=== PATIENT | female | born 1975 | race Caucasian/White ===

== ENCOUNTER 2016-03-28 17:24 | Emergency (ER) | payer OTHER ==
[2016-03-28 17:29] VITALS: BP 113/77; PULSE 87; TEMP 98.3; BMI 32.1
--- NOTE | 2016-03-28 19:33 | PDOC ---
History of Present Illness - General Chief Complaint: Migraine Headache Stated Complaint: MIGRAINE Time Seen by Provider: 03/28/16 19:21 History Source: Patient Exam Limitations: No Limitations - History of Present Illness Initial Comments: 03/28/16 19:33 CHIEF COMPLAINT: Headache HISTORY OF PRESENT ILLNESS: This is a 40 year old female with a history of migraine headaches (takes Fioricet at home) who presents complaining of headache , nausea, dizziness, and photophobia/phonophobia typical of her migraine headaches. She denies fevers/chills, focal weakness, visual changes, or any other symptoms. Neurologist is Dr. Smith Last brain MRI was 02/24/15 Vital signs on arrival are unremarkable. REVIEW OF SYSTEMS: GENERAL/CONSTITUTIONAL: No fever or chills. No weakness. No weight change. HEAD, EYES, EARS, NOSE AND THROAT: No change in vision. No ear pain or discharge. No sore throat. CARDIOVASCULAR: No chest pain or palpitations. RESPIRATORY: No cough, wheezing, or shortness of breath. GASTROINTESTINAL: No nausea, vomiting, diarrhea or constipation. GENITOURINARY: No dysuria, frequency, or change in urination. MUSCULOSKELETAL: No joint or muscle swelling or pain. No neck or back pain. SKIN: No rash or easy bruising. NEUROLOGIC: See HPI. PSYCHIATRIC: No depression or anxiety. ENDOCRINE: No increased thirst. No abnormal weight change. HEMATOLOGIC/LYMPHATIC: No anemia, easy bleeding, or history of blood clots. ALLERGIC/IMMUNOLOGIC: No hives or skin allergy. No latex allergy. PHYSICAL EXAM: GENERAL: The patient is awake, alert, and fully oriented, in no acute distress. HEAD: Normal with no signs of trauma. ENT: Pupils equal, round and reactive to light, extraocular movements intact, sclera anicteric, conjunctiva clear. Neck supple. LUNGS: Clear to auscultation bilaterally. Normal excursion. No respiratory distress or use of accessory muscles. CV: RRR, S1/S2, no MRG. Cap refill < 2 sec. ABDOMEN: Soft, non-distended, non-tender. EXTREMITIES: Normal range of motion, no edema. NEUROLOGICAL: Normal speech, normal gait. CN II-XII grossly intact. PSYCH: Normal mood, normal affect. SKIN: Warm, dry, normal turgor, no rashes or lesions noted. Past History - Past Medical History Allergies/Adverse Reactions: Allergies Allergy/AdvReac Type Severity Reaction Status Date / Time metoclopramide HCl Allergy Verified 03/28/16 17:26 [From [facility]] Home Medications: Ambulatory Orders Butalb/Acetaminophen/Caffeine [Fioricet 50-300-40 mg Capsule] 1 each PO TID 06/01 Suicide Attempt (Hx): No Other medical history: migraines - Surgical History Abdominal Surgery: Yes ("tummy ck" 2007) - Psycho/Social/Smoking Cessation Hx Anxiety: No Suicidal Ideation: No Smoking History: Never smoked Have you smoked in the past 12 months: No Information on smoking cessation initiated: No Hx Alcohol Use: No Drug/Substance Use Hx: No Substance Use Type: None *Physical Exam - Vital Signs Last Vital Signs Temp Pulse Resp BP Pulse Ox 98.3 F 87 18 113/77 100 03/28/16 17:26 03/28/16 17:26 03/28/16 17:26 03/28/16 17:26 03/28/16 17:26 Medical Decision Making - Medical Decision Making 03/28/16 19:50 A/P: 40 year old female with typical migraine symptoms. No focal neurologic deficits on exam. Followed closely by a neurologist. 1. Toradol/Compazine/Benadryl for abortive therapy 2. IV fluids 3. Re-assess 03/28/16 20:52 Patient is feeling better; denies VILLANUEVA. Will dc with neurology followup. *DC/Admit/Observation/Transfer Diagnosis at time of Disposition: Migraine Qualifiers: Migraine type: unspecified Status migrainosus presence: with status migrainosus Intractability: not intractable Qualified Code(s): G43.901 - Migraine, unspecified, not intractable, with status migrainosus - Discharge Dispostion Disposition: HOME Admit: No - Referrals Referrals: Haseeb Smith MD [Staff Physician] - 1 week - Patient Instructions Printed Discharge Instructions: DI for Migraine Additional Instructions: -Rest and stay well-hydrated -Continue Fioricet as needed -Follow up with your neurologist in one week -Return here for sudden/worsening headache, weakness, change in vision, or any other concerning symptoms
[2016-03-28 19:37] LABS: URINE APPEARANCE CLEAR; URINE BILIRUBIN NEGATIVE (NEGATIVE); URINE COLOR LTYELLOW; URINE GLUCOSE (UA) NEGATIVE (NEGATIVE); URINE KETONE NEGATIVE (NEGATIVE); URINE LEUK ESTERASE NEGATIVE (NEGATIVE); URINE NITRITE NEGATIVE (NEGATIVE); URINE PROTEIN NEGATIVE (NEGATIVE); URINE UROBILINOGEN NEGATIVE E.U./dl (0.2-1.0)
[2016-03-28 19:38] LABS: URINE BLOOD 2+ (NEGATIVE)
[2016-03-28] MEDS ORDERED: PROCHLORPERAZINE INJECTION 10 MG/2 ML VIAL IVPB ONE (19:39)
[2016-03-28] MEDS ORDERED: KETOROLAC TROMETHAMINE 30 MG/1 ML VIAL IVPUSH ONE (19:39)
[2016-03-28] MEDS ORDERED: SODIUM CHLORIDE 1,000 ML IV STA (19:39)
[2016-03-28 19:44] LABS: URINE BACTERIA FEW /hpf (NONE SEEN); URINE MUCUS RARE; URINE RBC 2 /hpf (0-3); URINE WBC 4 /hpf (3-5)
[2016-03-28] MEDS ORDERED: PROCHLORPERAZINE INJECTION 10 MG/2 ML VIAL ONE (19:48)
[2016-03-28] MEDS ORDERED: KETOROLAC TROMETHAMINE 30 MG/1 ML VIAL ONE (19:48)
== END 2016-03-28 20:56 | disposition home or self-care (01) ==
LOC: JER 17:24
PROC: 3E033GC Introduction of Other Therapeutic Substance into Peripheral Vein, Percutaneous Approach (ICD-10-PCS; principal; 2016-03-28)
PROC: 3E0333Z Introduction of Anti-inflammatory into Peripheral Vein, Percutaneous Approach (ICD-10-PCS; 2016-03-28)
DX: G43.901 Migraine, unspecified, not intractable, with status migrainosus (principal)
CPT/HCPCS: 81003; 81015; 84703; 99281-25

== ENCOUNTER 2016-04-15 18:16 | Emergency (ER) | payer OTHER ==
--- NOTE | 2016-04-15 18:38 | PDOC ---
Rapid Medical Evaluation Time Seen by Provider: 04/15/16 18:37 Medical Evaluation: Allergies Allergy/AdvReac Type Severity Reaction Status Date / Time metoclopramide HCl Allergy Verified 03/28/16 17:26 [From [facility]] 04/15/16 18:37 40 yo F c/o sore throat/left earache and fever x3d. Last temp check at 1500hr today 103.0F(oral) Rapid strep ordered
[2016-04-15 18:42] VITALS: BP 131/96; PULSE 102; TEMP 98.9; BMI 33.0
[2016-04-15] MEDS ORDERED: IBUPROFEN 400 MG TABLET (FP) PO ONE (19:28)
[2016-04-15] MEDS ORDERED: IBUPROFEN 600 MG TABLET (FP) PO ONE (19:29)
--- NOTE | 2016-04-15 19:32 | PDOC ---
History of Present Illness - General Chief Complaint: Cold Symptoms Stated Complaint: COLD SYMPTOMS Time Seen by Provider: 04/15/16 18:37 History Source: Patient - History of Present Illness Timing/Duration: reports: other Associated Symptoms: reports: cough, earache, fever/chills, headache, sore throat. denies: chest pain/soreness, facial pain, muscle aches, nasal congestion, nasal drainage, shortness of breath, wheezing Past History - Past Medical History Allergies/Adverse Reactions: Allergies Allergy/AdvReac Type Severity Reaction Status Date / Time metoclopramide HCl Allergy Verified 04/15/16 18:37 [From [facility]] Home Medications: Ambulatory Orders Butalb/Acetaminophen/Caffeine [Fioricet 50-300-40 mg Capsule] 1 each PO TID 06/01 Ibuprofen [Motrin -] 800 mg PO Q6H #30 tablet 04/15/16 Suicide Attempt (Hx): No Other medical history: MIGRANES - Surgical History Abdominal Surgery: Yes ("" 2007) - Psycho/Social/Smoking Cessation Hx Anxiety: No Suicidal Ideation: No Smoking History: Never smoked Have you smoked in the past 12 months: No Hx Alcohol Use: No Drug/Substance Use Hx: No Substance Use Type: None Review of Systems - Review of Systems Constitutional: Yes: Chills, Fever, Malaise HEENTM: Yes: Ear Pain, Throat Pain. No: Nose Congestion Respiratory: Yes: Cough. No: Shortness of Breath, Wheezing ABD/GI: No: Diarrhea, Nausea, Vomiting *Physical Exam - Vital Signs Last Vital Signs Temp Pulse Resp BP Pulse Ox 98.9 F 102 H 19 131/96 98 04/15/16 18:38 04/15/16 18:38 04/15/16 18:38 04/15/16 18:38 04/15/16 18:38 - Physical Exam General Appearance: Yes: Appropriately Dressed. No: Apparent Distress HEENT: positive: Normal ENT Inspection, Normal Voice. negative: Scleral Icterus (R), Scleral Icterus (L) Neck: positive: Supple. negative: Lymphadenopathy (R), Lymphadenopathy (L) Respiratory/Chest: positive: Lungs Clear, Normal Breath Sounds. negative: Respiratory Distress Cardiovascular: positive: Regular Rate, S1, S2 Integumentary: positive: Dry, Warm Neurologic: positive: Fully Oriented, Alert, Normal Mood/Affect Medical Decision Making - Medical Decision Making 04/15/16 19:29 40-year-old female, no medical history, nonsmoker, here with cough with headache , left ear pain and fever since Thursday. No sob, body aches, n/v/d or rash. Taking [id number] medication with no relief. No sick contacts. Patient well-appearing and stable with unremarkable exam. Most likely viral. Strep test ordered and sent from triage by RME team and pending. Pain control in ED 04/15/16 19:30 04/15/16 20:42 Pt eloped prior to rapid strep results. 04/15/16 20:42 *DC/Admit/Observation/Transfer Diagnosis at time of Disposition: Patient left before treatment completed - Discharge Dispostion Disposition: ELOPED Condition at time of disposition: Stable - Prescriptions Prescriptions: Ibuprofen [Motrin -] 800 mg PO Q6H #30 tablet - Referrals Referrals: Robert Kelly MD [Primary Care Provider] - - Patient Instructions - Post Discharge Activity Work/School Note: Back to Work
== END 2016-04-15 21:04 | disposition home or self-care (01) ==
LOC: JERFT 18:16
DX: B34.9 Viral infection, unspecified (principal)
CPT/HCPCS: 87070; 87430; 99281-25

== ENCOUNTER 2017-03-12 02:09 | Emergency (ER) | payer OTHER ==
[2017-03-12 02:42] VITALS: BMI 30.2
--- NOTE | 2017-03-12 02:54 | PDOC ---
History of Present Illness - History of Present Illness Initial Comments: 03/12/17 03:05 Patient is a 41 F with no significant PMHx, who presents with 2 days of RLQ pain. Patient states that her RLQ pain radiates down her right leg. She describes her pain as intermittent and sharp. States she has never experienced this type of pain before. LMP 03/01/17. Took tylenol with mild relief. She also admits to 1 day of chills. PCP: Robert Kelly <Kayc Cee - Last Filed: 03/12/17 03:05> - General History Source: Patient <EduardHaroldo brumfield - Last Filed: 03/12/17 19:48> - General Chief Complaint: Pain, Acute Stated Complaint: PAIN,FEVER Time Seen by Provider: 03/12/17 02:49 Past History <Kacy Cee - Last Filed: 03/12/17 03:05> - Surgical History Abdominal Surgery: Yes ("" 2007) - Suicide/Smoking/Psychosocial Hx Smoking History: Never smoked Have you smoked in the past 12 months: No Information on smoking cessation initiated: No Hx Alcohol Use: No Drug/Substance Use Hx: No Substance Use Type: None <Haroldo Bazan - Last Filed: 03/12/17 19:48> - Past Medical History Allergies/Adverse Reactions: Allergies Allergy/AdvReac Type Severity Reaction Status Date / Time metoclopramide HCl Allergy Verified 03/12/17 02:40 [From [facility]] Home Medications: Ambulatory Orders Ibuprofen 800 mg PO TID #30 tablet 03/12/17 Ondansetron [Zofran *Odt*] 4 mg SL TID #30 od.tablet 03/12/17 Sulfamethoxazole/Trimethoprim [Bactrim *Ds*] 1 tab PO BID #14 tablet 03/12/17 Review of Systems - Review of Systems Comments:: 03/12/17 03:06 CONSTITUTIONAL: Present: chills Absent: fever, no fatigue EYES: Absent: visual changes ENT: Absent: ear pain, no sore throat CARDIOVASCULAR: Absent: chest pain, no palpitations RESPIRATORY: Absent: cough, no SOB GI: Present: RLQ pain Absent: no nausea, no vomiting, no constipation, no diarrhea GENITOURINARY: Absent: dysuria, no frequency, no hematuria MUSCULOSKELETAL: Present: right leg pain Absent: back pain, no arthralgia SKIN: Absent: rash <Kacy Cee - Last Filed: 03/12/17 03:05> *Physical Exam - Vital Signs Last Vital Signs Temp Pulse Resp BP Pulse Ox 100.5 F H 109 H 20 123/85 99 03/12/17 02:40 03/12/17 02:40 03/12/17 02:40 03/12/17 02:40 03/12/17 02:40 - Physical Exam Comments: 03/12/17 03:05 GENERAL: Well-appearing, well-nourished. In mild distress. HEENT: Normocephalic, atraumatic. PERRL, EOM intact. CARDIOVASCULAR: Normal S1, S2. Regular rate and rhythm. PULMONARY: Clear to auscultation bilaterally. ABDOMEN: Soft, non-distended, RLQ tenderness to palpation. EXTREMITIES: Normal ROM in all four extremities. No gross deformities. SKIN: Warm, dry. No rash NEUROLOGICAL: No focal neurological deficits.. <Kacy Cee - Last Filed: 03/12/17 03:05> - Vital Signs Last Vital Signs Temp Pulse Resp BP Pulse Ox 100.5 F H 109 H 20 123/85 99 03/12/17 02:40 03/12/17 02:40 03/12/17 02:40 03/12/17 02:40 03/12/17 02:40 <Haroldo Bazan - Last Filed: 03/12/17 19:48> ED Treatment Course - LABORATORY CBC & Chemistry Diagram: 03/12/17 03:30 03/12/17 03:30 <Haroldo Bazan - Last Filed: 03/12/17 19:48> Medical Decision Making - Medical Decision Making 03/12/17 19:48 Dr. Bazan: The scribe's documentation has been prepared under my direction and personally reviewed by me in its entirery. I confirm that the note above accurately reflects all work, treatment, procedures, and medical decision making performed by me. <Haroldo Bazan - Last Filed: 03/12/17 19:48> *DC/Admit/Observation/Transfer - Attestations Scribe Attestion: 03/12/17 03:07 Documentation prepared by Kacy Cee, acting as medical language specialist for Haroldo Bazan MD. <Kacy Cee - Last Filed: 03/12/17 03:05> - Discharge Dispostion Admit: No <Haroldo Bazan - Last Filed: 03/12/17 19:48> Diagnosis at time of Disposition: Fever, Abdominal pain, UTI (urinary tract infection) - Discharge Dispostion Disposition: HOME Condition at time of disposition: Stable - Prescriptions Prescriptions: Ibuprofen 800 mg PO TID #30 tablet Ondansetron [Zofran *Odt*] 4 mg SL TID #30 od.tablet Sulfamethoxazole/Trimethoprim [Bactrim *Ds*] 1 tab PO BID #14 tablet - Referrals Referrals: Robert Kelly MD [Primary Care Provider] - - Patient Instructions Printed Discharge Instructions: DI for Urinary Tract Infection (UTI), DI for Abdominal Pain-Adult Additional Instructions: Please follow up with your doctor for re-evaluation. drink plenty of fluids. Pt take medications as directed. Return if any problems. - Post Discharge Activity Forms/Work/School Notes: Back to Work
[2017-03-12] MEDS ORDERED: HYDROmorphone HCL CARPU-JECT 1 MG/1 ML DISP.SYRIN IVPUSH ONE (02:55)
[2017-03-12] MEDS ORDERED: ONDANSETRON 4 MG/2 ML VIAL IVPUSH STA (02:55)
[2017-03-12] MEDS ORDERED: SODIUM CHLORIDE 1,000 ML IV STA ×2 (02:56→05:13)
[2017-03-12] MEDS ORDERED: HYDROmorphone HCL CARPU-JECT 2 MG/1 ML DISP.SYRIN ONE ×3 (03:23→05:21)
[2017-03-12] MEDS ORDERED: ONDANSETRON 4 MG/2 ML VIAL ONE (03:24)
[2017-03-12 03:41] LABS: BASO % 0.5 % (0-2.0); EOS % 0.2 % (0-4.5); HEMATOCRIT 44.2 % (32.4-45.2); HEMOGLOBIN 14.6 GM/dL (10.7-15.3); LYMPH % 9.7 % (8-40); MCH 31.4 pg (25.7-33.7); MCHC 33.1 g/dl (32.0-36.0); MEAN CELL VOLUME 94.9 fl (80-96); MEAN PLT VOLUME 8.7 fl (7.5-11.1); MONO % 3.4 % (3.8-10.2); NEUT % 86.2 % (42.8-82.8); PLATELET COUNT 235 K/MM3 (134-434); RBC 4.65 M/mm3 (3.60-5.2); RDW 13.9 % (11.6-15.6); WHITE BLOOD COUNT 14.3 K/mm3 (4.0-10.0)
[2017-03-12 03:42] LABS: URINE APPEARANCE CLEAR; URINE BILIRUBIN NEGATIVE (NEGATIVE); URINE BLOOD 2+ (NEGATIVE); URINE COLOR LTYELLOW; URINE GLUCOSE (UA) NEGATIVE (NEGATIVE); URINE KETONE NEGATIVE (NEGATIVE); URINE NITRITE POSITIVE (NEGATIVE); URINE PROTEIN NEGATIVE (NEGATIVE); URINE UROBILINOGEN NEGATIVE mg/dL (0.2-1.0)
[2017-03-12 03:55] LABS: URINE LEUK ESTERASE 2+ (NEGATIVE)
[2017-03-12 03:57] LABS: EPI CELLS RARE /HPF (FEW); URINE BACTERIA MANY /hpf (NONE SEEN); URINE HYALINE CAST 1 /lpf; YEAST RARE
[2017-03-12 04:28] LABS: ALBUMIN 3.8 g/dl (3.4-5.0); ALK PHOS 98 U/L (45-117); ANION GAP 12 (8-16); BILIRUBIN,TOTAL 0.6 mg/dL (0.2-1.0); BLOOD UREA NITROGEN 5 mg/dL (7-18); CALCIUM 9.1 mg/dL (8.5-10.1); CHLORIDE 102 mmol/L (98-107); CO2 25 mmol/L (21-32); CREATININE 0.8 mg/dL (0.55-1.02); GLUCOSE,RANDOM 84 mg/dL (74-106); LIPASE 97 U/L (73-393); SGPT/ALT 31 U/L (12-78); SODIUM 139 mmol/L (136-145); TOT PROT 7.9 g/dl (6.4-8.2)
[2017-03-12 04:29] LABS: MAGNESIUM 1.8 mg/dL (1.8-2.4); POTASSIUM 4.2 mmol/L (3.5-5.1); SGOT/AST 19 U/L (15-37)
[2017-03-12] MEDS ORDERED: HYDROmorphone HCL CARPU-JECT 2 MG/1 ML DISP.SYRIN IVPUSH ONE (05:13)
[2017-03-12 07:04] VITALS: TEMP 98.4
[2017-03-12] MEDS ORDERED: SULFAMETHOXAZOLE/TRIMETHOPRIM 800MG/160MG D.S. TABLET PO ONE (07:13)
[2017-03-12] MEDS ORDERED: IBUPROFEN 400 MG TABLET (FP) PO ONE ×2 (07:13→07:17)
[2017-03-12] MEDS ORDERED: ONDANSETRON *ODT* 4 MG TABLET SL ONE (07:13)
[2017-03-12] MEDS ORDERED: SULFAMETHOXAZOLE/TRIMETHOPRIM 800MG/160MG D.S. TABLET ONE (07:16)
[2017-03-12] MEDS ORDERED: ONDANSETRON *ODT* 4 MG TABLET ONE (07:17)
[2017-03-12 07:35] VITALS: BP 126/74; PULSE 68
--- NOTE | 2017-03-14 08:18 | PDOC ---
Patient Follow-up (Call Back) - Post ED Follow - Up Condition at time of discharge: Stable Disposition at time of original discharge: HOME Reason for Call Back: Abnwl. Microbiology (Patient's urine culture shows non- lactose fermenting GNB. Patient currently on Bactrim. Will await final report.)
--- NOTE | 2017-03-16 07:47 | PDOC ---
Patient Follow-up (Call Back) - Post ED Follow - Up Condition at time of discharge: Stable Disposition at time of original discharge: HOME Reason for Call Back: Abnwl. Microbiology (Urine cultures with E. coli sensitive to Bactrim. Pt given Rx for Bactrim during visit.)
== END 2017-03-12 07:37 | disposition home or self-care (01) ==
LOC: JER 02:09
DX: N39.0 Urinary tract infection, site not specified (principal)
CPT/HCPCS: 36415; 74177-TC; 80053; 81003; 81015; 83690; 83735; 84703; 85025; 87040; 87086; 87186; 99281-25

== ENCOUNTER 2018-05-16 20:02 | Emergency (ER) | payer OTHER ==
[2018-05-16 20:15] VITALS: BMI 32.1
--- NOTE | 2018-05-16 20:55 | PDOC ---
History of Present Illness - General Chief Complaint: Pain Stated Complaint: LOWER BACK PAIN Time Seen by Provider: 05/16/18 20:32 History Source: Patient Exam Limitations: No Limitations - History of Present Illness Initial Comments: 42 yo F h/o UTI and migraine p/w 1 week of worsening LBP. Her LBP has been a chronic condition. She saw her PMD on thursday and received an injection on L buttock. She's unknown what kind of injection it was. It provided her with brief relief but the pain came back worse the last 2 days which prompted her to come in to the ED. The pain is vaguely located diffusely in the lower back, sharp, 10/10, constant, non-radiating. She denies any urinary/bowel sx, sensory loss or focal weakness, trauma. 05/16/18 21:08 Will give toradol IM 60mg and oral flexril 10mg once to relieve her symptom. Will reevaluate. 05/16/18 22:03 Pt stated toradol provided instant relief. But she refused to take OTC NSAID if discharged. Past History - Past Medical History Allergies/Adverse Reactions: Allergies Allergy/AdvReac Type Severity Reaction Status Date / Time metoclopramide HCl Allergy Verified 03/12/17 02:40 [From [facility]] Home Medications: Ambulatory Orders Ibuprofen 800 mg PO TID #30 tablet 03/12/17 Ondansetron [Zofran *Odt*] 4 mg SL TID #30 od.tablet 03/12/17 Sulfamethoxazole/Trimethoprim [Bactrim *Ds*] 1 tab PO BID #14 tablet 03/12/17 Nitrofurantoin Monohyd/M-Cryst [Macrobid -] 100 mg PO BID #10 capsule 05/16/18 Oxycodone HCl/Acetaminophen [Percocet 5-325 mg Tablet] 1 tab PO BID #4 tablet MDD 2 tabs 05/16/18 Anemia: No CVA: No COPD: No Dementia: No Dialysis: No Disorders: No Hypercholesterolemia: No Other medical history: Pt denies - Surgical History Abdominal Surgery: Yes ("" 2007) - Suicide/Smoking/Psychosocial Hx Smoking History: Never smoked Have you smoked in the past 12 months: No Information on smoking cessation initiated: No Hx Alcohol Use: No Drug/Substance Use Hx: No Substance Use Type: None Review of Systems - Review of Systems Able to Perform ROS?: Yes Is the patient limited Khmer proficient: No Constitutional: No: Chills, Fever Respiratory: No: Cough, Shortness of Breath Cardiac (ROS): No: Chest Pain ABD/GI: No: Abdominal Distended, Constipated, Diarrhea, Nausea, Vomiting, Abdominal cramping : No: Burning, Dysuria, Discharge, Flank Pain, Incontinence, Pain, Urgency Musculoskeletal: Yes: Other (LBP) Neurological: No: Headache, Numbness, Paresthesia, Tingling, Weakness *Physical Exam - Vital Signs Last Vital Signs Temp Pulse Resp BP Pulse Ox 98.2 F 97 H 18 142/81 95 05/16/18 20:13 05/16/18 20:13 05/16/18 20:13 05/16/18 20:13 05/16/18 20:13 - Physical Exam General Appearance: Yes: Appropriately Dressed, Obese Respiratory/Chest: positive: Lungs Clear, Normal Breath Sounds Cardiovascular: positive: Regular Rhythm, Regular Rate, S1, S2. negative: Edema , JVD, Murmur Gastrointestinal/Abdominal: positive: Normal Bowel Sounds. negative: Tender Musculoskeletal: negative: CVA Tenderness, CVA Tenderness (R), CVA Tenderness (L ) Neurologic: positive: relationship assoc II-XII NML intact, Fully Oriented, Motor Strength 5/ 5. negative: Sensory Deficit *DC/Admit/Observation/Transfer Diagnosis at time of Disposition: Lower back pain Qualifiers: Chronicity: chronic Back pain laterality: midline Sciatica presence: without sciatica Qualified Code(s): M54.5 - Low back pain; G89.29 - Other chronic pain UTI (urinary tract infection) Qualifiers: Urinary tract infection type: site unspecified Hematuria presence: without hematuria Qualified Code(s): N39.0 - Urinary tract infection, site not specified - Discharge Dispostion Disposition: HOME Condition at time of disposition: Stable - Prescriptions Prescriptions: Nitrofurantoin Monohyd/M-Cryst [Macrobid -] 100 mg PO BID #10 capsule Oxycodone HCl/Acetaminophen [Percocet 5-325 mg Tablet] 1 tab PO BID #4 tablet MDD 2 tabs - Referrals Referrals: Robert Kelly MD [Primary Care Provider] - - Patient Instructions Printed Discharge Instructions: DI for Low Back Pain, DI for Urinary Tract Infection (UTI) Additional Instructions: You were evaluated in the ED for lower back pain. Your condition is chronic in nature likely secondary to obesity. It's advised that you continue to lose weight and take over the counter NSAID for pain relief. While in the ED, your urinalysis showed some bacteria in your urine sample. 4 tablets of percocet for pain relief and 5 days supply of macrobid for UTI were sent to your pharmacy. Follow up with your primary doctor for management of the lower back pain. - Post Discharge Activity
[2018-05-16] MEDS ORDERED: CYCLOBENZAPRINE HCL 10 MG TABLET (FP) PO ONE (21:04)
[2018-05-16] MEDS ORDERED: KETOROLAC TROMETHAMINE 60 MG/2 ML VIAL IM ONE (21:04)
[2018-05-16 21:06] LABS: EPI CELLS 1.1 /HPF (0-5); PH,URINE 6.5 (5.0-8.0); URINE APPEARANCE CLEAR; URINE BACTERIA 41.5 /hpf (NEGATIVE); URINE BILIRUBIN NEGATIVE (NEGATIVE); URINE CASTS 1 /hpf (0-8); URINE COLOR YELLOW; URINE GLUCOSE (UA) NEGATIVE (NEGATIVE); URINE KETONE NEGATIVE (NEGATIVE); URINE LEUK ESTERASE NEGATIVE (NEGATIVE); URINE NITRITE NEGATIVE (NEGATIVE); URINE PROTEIN NEGATIVE (NEGATIVE); URINE RBC 6 /hpf (0-4); URINE UROBILINOGEN 0.2 mg/dL (0.2-1.0); URINE WBC 1 /hpf (0-5)
[2018-05-16] MEDS ORDERED: KETOROLAC TROMETHAMINE 60 MG/2 ML VIAL ONE (21:21)
[2018-05-16] MEDS ORDERED: CYCLOBENZAPRINE HCL 10 MG TABLET (FP) ONE (21:21)
--- NOTE | 2018-05-16 22:38 | PDOC ---
Attending Attestation - Physicial Exam PE: 05/16/18 22:53 ADULT EXAM GENERAL: Awake, alert, and fully oriented, in no acute distress HEAD: No signs of trauma EYES: PERRLA, EOMI, sclera anicteric, conjunctiva clear ENT: Auricles normal inspection, hearing grossly normal, nares patent, oropharynx clear without exudates. Moist mucosa NECK: Normal ROM, supple, no lymphadenopathy, JVD, or masses LUNGS: Breath sounds equal, clear to auscultation bilaterally. No wheezes, and no crackles HEART: Regular rate and rhythm, normal S1 and S2, no murmurs, rubs or gallops ABDOMEN: Soft, nontender, normoactive bowel sounds. No guarding, no rebound. No masses BACK: (+) Low back tenderness. EXTREMITIES: Normal range of motion, no edema. No clubbing or cyanosis. No cords , erythema, or tenderness NEUROLOGICAL: Cranial nerves II through XII grossly intact. Normal speech, normal gait SKIN: Warm, Dry, normal turgor, no rashes or lesions noted. <Corrina Courtney - Last Filed: 05/16/18 22:51> - Resident Resident Name: Herson Sarah - ED Attending Attestation I have performed the following: I have examined & evaluated the patient, The case was reviewed & discussed with the resident, I agree w/resident's findings & plan, Exceptions are as noted - HPI HPI: 05/16/18 22:37 42 yo female has had low back pain for past week and saw her PCP for this problem on Thursday. She got an injection and was prescribed cerebrex and baclofen but still has severe pain she has no fecal or bladder incontinence,no saddle anesthesia , no numbness ,no radiating pain she has no cva tenderness,no fever chills UA mild UTI,RX for bactrim imp low back pain, UA 05/16/18 22:40 - Medical Decision Making 05/17/18 02:25 imp musculoskeletal pain,low back pain <Kimber Hernández - Last Filed: 05/17/18 02:25>
[2018-05-16 23:04] VITALS: BP 138/78; PULSE 86; TEMP 98.1
== END 2018-05-16 22:30 | disposition home or self-care (01) ==
LOC: JER 20:02
PROC: 3E0233Z Introduction of Anti-inflammatory into Muscle, Percutaneous Approach (ICD-10-PCS; principal; 2018-05-16)
DX: N39.0 Urinary tract infection, site not specified (principal); M54.5 Low back pain; G89.29 Other chronic pain
CPT/HCPCS: 81003; 99282-25

== ENCOUNTER 2019-02-21 19:36 | Emergency (ER) | payer OTHER ==
--- NOTE | 2019-02-21 19:41 | PDOC ---
Rapid Medical Evaluation Medical Evaluation: Allergies Allergy/AdvReac Type Severity Reaction Status Date / Time metoclopramide HCl Allergy Verified 02/18/19 19:24 [From [facility]] I have performed a brief in-person evaluation of this patient. The patient presents with a chief complaint of: concern by department of health for possible mumps; has R salivary gland swelling x 3 days; had CT scan done showing sialdenitis Pertinent physical exam findings: In NAD, +R submandibular gland swelling I have ordered the following: Mumps testing The patient will proceed to the ED for further evaluation. 02/21/19 19:40
[2019-02-21 19:53] VITALS: BP 132/89; PULSE 110; TEMP 98.3; BMI 31.1
--- NOTE | 2019-02-21 20:24 | PDOC ---
History of Present Illness - General Chief Complaint: Pain Stated Complaint: R/SIDE/NECK PAIN Time Seen by Provider: 02/21/19 19:52 - History of Present Illness Initial Comments: 02/21/19 20:22 43-year-old female sent to the emergency department by the [facility] of [facility] for mumps evaluation Past History - Past Medical History Allergies/Adverse Reactions: Allergies Allergy/AdvReac Type Severity Reaction Status Date / Time metoclopramide HCl Allergy Verified 02/21/19 19:48 [From [facility]] Home Medications: Ambulatory Orders Ibuprofen 800 mg PO TID #30 tablet 03/12/17 Ondansetron [Zofran *Odt*] 4 mg SL TID #30 od.tablet 03/12/17 Sulfamethoxazole/Trimethoprim [Bactrim *Ds*] 1 tab PO BID #14 tablet 03/12/17 Cyclobenzaprine HCl [Flexeril -] 10 mg PO TID PRN #9 tablet MDD 3 tabs 05/16/18 Nitrofurantoin Monohyd/M-Cryst [Macrobid -] 100 mg PO BID #10 capsule 05/16/18 Oxycodone HCl/Acetaminophen [Percocet 5-325 mg Tablet] 1 tab PO BID #4 tablet MDD 2 tabs 05/16/18 Amoxicillin/Potassium Clav [Augmentin 875-125 Tablet] 1 each PO BID #20 tablet 02/18/19 Ibuprofen 600 mg PO QID PRN #30 tablet 02/18/19 Anemia: No CVA: No COPD: No Dementia: No Dialysis: No Disorders: No Hypercholesterolemia: No - Surgical History Abdominal Surgery: Yes ("kristofer" 2007) - Psycho Social/Smoking Cessation Hx Smoking History: Never smoked Have you smoked in the past 12 months: No Information on smoking cessation initiated: No Hx Alcohol Use: No Drug/Substance Use Hx: No Substance Use Type: None Review of Systems - Review of Systems Constitutional: Yes: Fever *Physical Exam - Vital Signs Last Vital Signs Temp Pulse Resp BP Pulse Ox 98.3 F 110 H 20 132/89 98 02/21/19 19:39 02/21/19 19:39 02/21/19 19:39 02/21/19 19:39 02/21/19 19:39 - Physical Exam 02/21/19 20:23 GENERAL: The patient is awake, alert, and fully oriented, in no acute distress. HEAD: Normal with no signs of trauma. EYES: sclera anicteric, conjunctiva clear. ENT: Ears normal tympanic membranes normal oropharynx clear uvula midline NECK: Normal range of motion no rigidity right-sided tenderness LUNGS: Breath sounds equal, clear to auscultation bilaterally. No wheezes, and no crackles. HEART: S1 and S2 without murmur, rub or gallop. ABDOMEN: Soft, nontender, normoactive bowel sounds. No guarding, no rebound. No masses. EXTREMITIES: Normal range of motion, no edema. No clubbing or cyanosis. No cords, erythema, or tenderness. NEUROLOGICAL: Cranial nerves II through XII grossly intact. Normal speech, normal gait. PSYCH: Normal mood, normal affect. SKIN: Warm, Dry, normal turgor, no rashes or lesions noted. Medical Decision Making - Medical Decision Making 02/21/19 20:23 Swabs have been done blood test ordered patient will be discharged Discharge - Discharge Information Problems reviewed: Yes Clinical Impression/Diagnosis: Viral syndrome Condition: Stable Disposition: HOME - Admission No - Follow up/Referral Referrals: Robert Kelly MD [Primary Care Provider] - - Patient Discharge Instructions Additional Instructions: Tylenol and Motrin for pain and fever follow-up with your primary care physician. We will call you regarding your viral results return to the emergency room for further issues should your symptoms worsen. - Post Discharge Activity Work/Back to School Note: Back to Work
== END 2019-02-21 20:39 | disposition home or self-care (01) ==
LOC: JERFT 19:36
DX: B34.9 Viral infection, unspecified (principal)
CPT/HCPCS: 99281-25

== ENCOUNTER 2020-06-08 23:12 | Observation (INO) | payer OTHER ==
[2020-06-08] MEDS ORDERED: ACETAMINOPHEN 1000 MG/100 ML VIAL (NON FORMULARY) IVPB ONE (23:52)
[2020-06-08] MEDS ORDERED: ONDANSETRON 4 MG/2 ML VIAL IVPUSH ONE (23:52)
[2020-06-08] MEDS ORDERED: ACETAMINOPHEN INJECTION 100 ML IVPB ONE (23:55)
[2020-06-08] MEDS ORDERED: ONDANSETRON 4 MG/2 ML VIAL ONE (23:56)
[2020-06-08] MEDS ORDERED: ASPIRIN 81 MG CHEWABLE TABLETS ONE (23:57)
[2020-06-09] MEDS ORDERED: METOPROLOL TARTRATE 5 MG/5 ML VIAL IVPUSH ONE (00:04)
[2020-06-09] MEDS ORDERED: ASPIRIN 81 MG CHEWABLE TABLETS PO ONE (00:05)
[2020-06-09] MEDS ORDERED: METOPROLOL TARTRATE 5 MG/5 ML VIAL ONE (00:09)
[2020-06-09 00:44] LABS: BASO % 0.5 % (0-2.0); EOS % 0.5 % (0-4.5); HEMATOCRIT 43.4 % (32.4-45.2); HEMOGLOBIN 14.7 GM/dL (10.7-15.3); LYMPH % 19.8 % (8-40); MCH 32.3 pg (25.7-33.7); MCHC 33.9 g/dl (32.0-36.0); MEAN CELL VOLUME 95.1 fl (80-96); MEAN PLT VOLUME 8.7 fl (7.5-11.1); MONO % 5.6 % (3.8-10.2); NEUT % 73.6 % (42.8-82.8); PLATELET COUNT 324 K/MM3 (134-434); RBC 4.57 M/mm3 (3.60-5.2); RDW 14.1 % (11.6-15.6)
[2020-06-09 01:05] LABS: CHLORIDE 104 mmol/L (98-107); SODIUM 140 mmol/L (136-145)
[2020-06-09 01:07] LABS: BLOOD UREA NITROGEN 5.9 mg/dL (7-18); CALCIUM 8.8 mg/dL (8.5-10.1); CO2 23 mmol/L (21-32); GLUCOSE,RANDOM 108 mg/dL (74-106)
[2020-06-09 01:08] LABS: ALBUMIN 3.7 g/dl (3.4-5.0)
[2020-06-09 01:10] LABS: SGOT/AST 26 U/L (15-37); SGPT/ALT 44 U/L (13-61)
[2020-06-09 01:12] LABS: BILIRUBIN,TOTAL 0.3 mg/dL (0.2-1); TOT PROT 7.4 g/dl (6.4-8.2)
[2020-06-09 01:13] LABS: ALK PHOS 101 U/L (45-117)
[2020-06-09 01:31] LABS: ANION GAP 13 MMOL/L (8-16)
[2020-06-09] MEDS ORDERED: POTASSIUM CHLORIDE TABS 20 MEQ TABLET.ER (FP) PO ONE ×4 (01:32→04:51)
[2020-06-09] MEDS ORDERED: MAGNESIUM SULF 50% (8.12 MEQ/2 ML-1 GM VIAL) IVPB ONE (01:58)
[2020-06-09] MEDS ORDERED: MAGNESIUM SULFATE IN WATER 2 GM/50 ML IVPB IVPB ONE (02:00)
[2020-06-09 06:38] LABS: HEMATOCRIT 41.6 % (32.4-45.2); HEMOGLOBIN 14.1 GM/dL (10.7-15.3); MCH 32.3 pg (25.7-33.7); MCHC 33.8 g/dl (32.0-36.0); MEAN CELL VOLUME 95.3 fl (80-96); MEAN PLT VOLUME 8.3 fl (7.5-11.1); PLATELET COUNT 337 K/MM3 (134-434); RBC 4.36 M/mm3 (3.60-5.2); RDW 14.2 % (11.6-15.6); WHITE BLOOD COUNT 12.5 K/mm3 (4.0-10.0)
[2020-06-09 06:56] LABS: CHLORIDE 105 mmol/L (98-107); SODIUM 140 mmol/L (136-145)
[2020-06-09 06:59] LABS: ANION GAP 6 MMOL/L (8-16); BLOOD UREA NITROGEN 5.3 mg/dL (7-18); CALCIUM 8.7 mg/dL (8.5-10.1); CO2 29 mmol/L (21-32); GLUCOSE,RANDOM 76 mg/dL (74-106); MAGNESIUM 2.6 mg/dL (1.8-2.4)
[2020-06-09 07:03] LABS: CREATININE 0.8 mg/dL (0.55-1.3); PHOSPHOROUS 3.7 mg/dL (2.5-4.9)
[2020-06-09 07:05] LABS: TRIGLYCERIDES 185 mg/dL (0-150)
[2020-06-09 07:06] LABS: LDL CHOLESTEROL (ONLY SJRH) 214 mg/dL (5-100)
[2020-06-09 07:08] LABS: HDL CHOLESTEROL 48 mg/dL (40-60)
[2020-06-09 08:13] VITALS: BMI 26.6
[2020-06-09 08:24] LABS: CHOLESTEROL 307 mg/dL (50-200)
[2020-06-09] MEDS: SODIUM CHLORIDE 0.45% 1,000 ML IV SCH ×2 (09:30→21:53)
[2020-06-09] MEDS ORDERED: ASPIRIN 81 MG CHEWABLE TABLETS PO SCH (10:00)
[2020-06-09] MEDS: ATORVASTATIN CA 80 MG TABLET (FP) PO SCH (21:36)
[2020-06-09] MEDS ORDERED: ATORVASTATIN CA 20 MG TABLET (FP) PO SCH (22:00)
[2020-06-10] MEDS ORDERED: MELATONIN 5 MG TABLETS PO ONE (00:04)
[2020-06-10] MEDS: SODIUM CHLORIDE 0.45% 1,000 ML IV SCH (05:24)
[2020-06-10 07:37] LABS: BASO % 0.8 % (0-2.0); EOS % 2.2 % (0-4.5); HEMATOCRIT 37.9 % (32.4-45.2); LYMPH % 30.9 % (8-40); MCH 32.8 pg (25.7-33.7); MCHC 34.3 g/dl (32.0-36.0); MEAN CELL VOLUME 95.6 fl (80-96); MEAN PLT VOLUME 8.5 fl (7.5-11.1); MONO % 7.3 % (3.8-10.2); NEUT % 58.8 % (42.8-82.8); PLATELET COUNT 278 K/MM3 (134-434); RBC 3.96 M/mm3 (3.60-5.2); RDW 14.1 % (11.6-15.6); WHITE BLOOD COUNT 8.8 K/mm3 (4.0-10.0)
[2020-06-10 08:04] LABS: BLOOD UREA NITROGEN 4.5 mg/dL (7-18)
[2020-06-10 08:06] LABS: CREATININE 0.6 mg/dL (0.55-1.3)
[2020-06-10 08:08] LABS: BILIRUBIN,TOTAL 0.7 mg/dL (0.2-1); TOT PROT 5.8 g/dl (6.4-8.2)
[2020-06-10] MEDS: ASPIRIN 81 MG CHEWABLE TABLETS PO SCH (09:11)
[2020-06-10] MEDS: ENOXAPARIN NA (PORCINE) 40 MG/0.4 ML DISP.SYRIN SQ SCH (09:11)
[2020-06-10] MEDS: ATORVASTATIN CA 80 MG TABLET (FP) PO SCH (21:20)
[2020-06-11] MEDS: SODIUM CHLORIDE 0.45% 1,000 ML IV SCH (06:34)
[2020-06-11 07:52] LABS: BLOOD UREA NITROGEN 4.6 mg/dL (7-18); CALCIUM 8.6 mg/dL (8.5-10.1); MAGNESIUM 2.1 mg/dL (1.8-2.4)
[2020-06-11 07:56] LABS: CREATININE 0.7 mg/dL (0.55-1.3); PHOSPHOROUS 3.2 mg/dL (2.5-4.9)
[2020-06-11 13:50] VITALS: BP 124/71; PULSE 102; TEMP 97.8
[2020-06-11] MEDS: ASPIRIN 81 MG CHEWABLE TABLETS PO SCH (14:43)
[2020-06-11] MEDS: ENOXAPARIN NA (PORCINE) 40 MG/0.4 ML DISP.SYRIN SQ SCH (14:44)
[2020-06-11] MEDS ORDERED: ATORVASTATIN CA 40 MG TABLET (FP) PO SCH (15:25)
== END 2020-06-11 17:16 | disposition home or self-care (01) ==
LOC: JER 23:12 → JERBED 06-09 01:39 → J4W 06-09 19:54 → J4S 06-09 23:45
PROVIDERS: ADMIT Internal Medicine; ATTEND Internal Medicine
PROC: 3E033NZ Introduction of Analgesics, Hypnotics, Sedatives into Peripheral Vein, Percutaneous Approach (ICD-10-PCS; principal; 2020-06-09)
PROC: 3E033GC Introduction of Other Therapeutic Substance into Peripheral Vein, Percutaneous Approach (ICD-10-PCS; 2020-06-09)
PROC: 3E0337Z Introduction of Electrolytic and Water Balance Substance into Peripheral Vein, Percutaneous Approach (ICD-10-PCS; 2020-06-09)
DX: R07.9 Chest pain, unspecified (principal); E87.6 Hypokalemia; E78.5 Hyperlipidemia, unspecified; G43.909 Migraine, unspecified, not intractable, without status migrainosus; R11.0 Nausea; R00.0 Tachycardia, unspecified; Z88.8 Allergy status to other drugs, medicaments and biological substances
CPT/HCPCS: 36415; 71045-TC-FY; 78452-TC; 80048; 80053; 80061; 83036; 83721; 83735; 84100; 84443; 84484; 84703; 85025; 85027; 85379; 85730; 93005; 93010; 93017; 93306-TC; 99285-25; A9502; C9803; G0378; J0131; U0003; U0005